=== PATIENT | female | born 1955 | race Caucasian/White ===

== ENCOUNTER → 2017-10-08 11:09 | Outpatient (CLI) | payer BC, SELFPAY ==
--- NOTE | 2017-10-08 11:46 | XR_ITS ---
EXAM: XR lumbar spine min 4V HISTORY: ITS.REASON: LOW BACK PAIN ORDERING PHYSICIAN: Margo Zuluaga PATIENT AGE: 62 years COMPARISON: None FINDINGS: There is mild degenerative disc disease at L5-S1. Mild facet hypertrophic changes are present from L3 to S1. The SI joints have an unremarkable appearance. There is minimal levocurvature of the lumbar spine. No acute fracture or dislocation. No lytic or blastic change. IMPRESSION: Degenerative disc disease L5-S1 with mild facet arthritic changes L3-S1
== END ==
PROVIDERS: PCP Nurse Practitioner Family; Visit Provider Nurse Practitioner Family
DX: M54.42 Lumbago with sciatica, left side (principal)
CPT/HCPCS: 72110

== ENCOUNTER → 2020-02-02 16:14 | Outpatient (POV) | payer BC, SELFPAY | PROVIDERS: Visit Provider Dermatology | DX: Z00.00 Encounter for general adult medical examination without abnormal findings (principal) ==

== ENCOUNTER → 2020-02-16 14:06 | Outpatient (POV) | payer BC, SELFPAY | PROVIDERS: Visit Provider Dermatology | DX: Z00.00 Encounter for general adult medical examination without abnormal findings (principal) ==

== ENCOUNTER → 2023-01-21 14:08 | Outpatient (CLI) | payer MEDICARE, SELFPAY ==
--- NOTE | 2023-01-21 14:12 | MM_ITS ---
PROCEDURE INFORMATION: Exam: Bilateral Screening 3D Mammography Exam date and time: 01/21/2023 2:06 PM Age: 67 years old Clinical indication: Screening examination TECHNIQUE: Imaging protocol: Bilateral Screening tomosynthesis and 2D mammography including computer-aided detection (CAD) when performed. COMPARISON: 1. DMSB DIGITAL MAMM-SCREEN BILATERAL 02/12/2011 9:45 AM 2. DIGMAMMDX MAMMOGRAM DX-OUTCOME ANALYST N/C 01/10/2009 10:05 AM FINDINGS: MAMMOGRAPHY: Breast composition: There are scattered areas of fibroglandular density. Mass: None. Architectural distortion: None. Calcifications: No suspicious calcifications. Asymmetric density: None. Skin thickening: None. Axillary adenopathy: None. IMPRESSION: No mammographic evidence of malignancy. Annual screening is recommended unless otherwise clinically indicated. ASSESSMENT: BI-RADS Category 1: Negative
== END ==
PROVIDERS: PCP Nurse Practitioner Family; Visit Provider Nurse Practitioner Family
DX: Z12.31 Encounter for screening mammogram for malignant neoplasm of breast (principal)
CPT/HCPCS: 77063; 77067

== ENCOUNTER 2023-03-27 09:30 | Day surgery (SDC) | payer MEDICARE, SELFPAY ==
[2023-03-27] VITALS (7 sets, daily range): BP systolic 107–138; BP diastolic 51–87; PULSE 63–75; RESP 16–21; TEMP 36.8; O2SAT 94–100; BMI 31.9
[2023-03-27] MEDS: LACTATED RINGERS 1000ML 1,000 ML 100 ML IV (10:10)
--- NOTE | 2023-03-27 10:43 | P.PNANES_ITS ---
[facility] Disclaimer: The information contained in this section may have been updated after the patient was seen, as this information can be updated by other users. Medical History (Updated 03/27/23 @ 10:15 by Mariposa Melgoza RN) History of tremor Surgical History (Updated 03/27/23 @ 10:17 by Mariposa Melgoza RN) History of colonoscopy Family History (Updated 03/27/23 @ 10:17 by Mariposa Melgoza RN) Other Colon cancer Family history of cancer Social History (Updated 03/27/23 @ 10:17 by Mariposa Melgoza RN) Smoking Status: Never smoker alcohol intake: never substance use type: denies use current occupational status: employed Travel in the last 8 weeks: None caffeine: Yes [facility] Anesthesia Checklist Patient Identification Patient Identification: Arm Band Structural Data Admitted From: Home Planned Operative Procedure/s: colonoscopy Consent for Planned Operative Procedure(s) Verified: Yes Verified Documents: Surgical Consent and History and Physical NPO Status Verified Time NPO: 00:00 Additional verifications Anesthesia Reactions: No Hx Blood Transfusions: No Blood Transfusion Reaction: No Airway Assessment Mallampati Score:: Class II C-Spine Mobility Assessed: Yes TMJ Mobility Assessed: Yes Dentition: Good Dentition Neurological Assessment Level of Consciousness: Awake and Alert Anesthesia Plan Anesthesia Risk discussed: Yes Anesthesia Plan: Verified ASA Class: II Anesthesia Type: MAC
--- NOTE | 2023-03-27 11:35 | P.PCN_ITS ---
Procedure: Date: 03/27/23 Patient Date of :: 1955 Procedure Performed:: Colonoscopy Indications:: The patient is a 67 year old who presents for surveillance colonoscopy for a history of colon polyps in the past. There is a family history of colon cancer in a first-degree relative with her mother. Performing Provider:: Dennis Ramirez MD Referring Provider:: Funmi Edward APRN Sedation:: See RN records Procedure:: After placing the patient in the left lateral decubitus position, the colonoscopy was gently inserted into the rectum and under direct visualization advanced to the cecum which was identified by transillumination in the right lower quadrant, identification of the ileocecal valve, appendiceal orifice, and cecal strap. Color, texture, mucosa, and anatomy of the colon were carefully e xamined with the scope. Findings:: Anal canal: normal Rectum: normal Sigmoid colon: normal without polyps or inflammatory changes Descending colon: normal without polyps or inflammatory changes Splenic flexure: normal Transverse colon: normal without polyps or inflammatory changes Hepatic flexure: normal Ascending colon: normal without polyps or inflammatory changes Cecum: normal Terminal ileum: not visualized Impression: Normal appearing colon Recommendations:: Repeat colonoscopy in 5 years Complications:: None Estimated blood obtained (mL): 0 Colonoscopy Component Colonoscopy Component Was a colonoscopy performed during today's procedure?: Yes Recommended follow up colonoscopy of at least 10 years?: Yes
== END 2023-03-27 12:28 | disposition home or self-care (01) ==
PROVIDERS: PCP Nurse Practitioner Family; Visit Provider Internal Medicine
PROC: (CPT G0105; principal; 2023-03-27 11:00)
DX: Z12.11 Encounter for screening for malignant neoplasm of colon (principal); Z86.010 Personal history of colon polyps; Z80.0 Family history of malignant neoplasm of digestive organs
CPT/HCPCS: G0105

== ENCOUNTER 2024-01-17 09:58 | Outpatient (CLI) | payer MEDICARE, SELFPAY ==
--- NOTE | 2024-01-17 10:03 | MM_ITS ---
PROCEDURE INFORMATION: Exam: MG Bilateral Screening 3D Mammography Exam date and time: 01/17/2024 9:52 AM Age: 68 years old Clinical indication: Screening examination, red/purple rash on the right breast, marked with a skin marker. TECHNIQUE: Imaging protocol: Bilateral Screening tomosynthesis and 2D mammography including computer-aided detection (CAD) when performed. COMPARISON: 1. MG MM DIG SCREENING MAMM BI W/CAD 01/21/2023 2:06 PM 2. MG DMSB DIGITAL MAMM-SCREEN BILATERAL 02/12/2011 9:45 AM FINDINGS: MAMMOGRAPHY: Breast composition: There are scattered areas of fibroglandular density. Mass: None. Architectural distortion: None. Calcifications: No suspicious calcifications. Asymmetric density: None. Skin thickening: None. No abnormality of the skin in the region of the skin marker placed in the right lower inner quadrant Axillary adenopathy: None. IMPRESSION: 1. A right breast ultrasound is recommended for further evaluation of skin rash in the right breast. 2. No mammographic abnormality is seen in either breast. ASSESSMENT: BI-RADS Category 0: Incomplete- Need Additional Imaging Evaluation.
== END 2024-01-17 23:59 | disposition home or self-care (01) ==
LOC: RAD 09:59
PROVIDERS: PCP Family Medicine; Visit Provider Nurse Practitioner
DX: Z12.31 Encounter for screening mammogram for malignant neoplasm of breast (principal)
CPT/HCPCS: 77063; 77067

== ENCOUNTER 2024-01-27 13:47 | Outpatient (CLI) | payer MEDICARE, SELFPAY ==
--- NOTE | 2024-01-27 13:52 | US_ITS ---
PROCEDURE INFORMATION: Exam: US Right Breast, Complete Exam date and time: 01/27/2024 2:23 PM Age: 68 years old Clinical indication: Rash in the right breast. TECHNIQUE: Imaging protocol: Complete ultrasound of all four quadrants of the right breast and the retroareolar regions, including ultrasound of the axilla when performed. COMPARISON: MG MM DIG SCREENING MAMM BI W/CAD 01/17/2024 9:52 AM FINDINGS: ULTRASOUND: Breast ultrasound findings: Ultrasound of the right breast in the upper inner quadrant is performed and demonstrates no suspicious skin thickening, underlying distortion, or shadowing, to correlate with the patient's area of skin discoloration/rash. Complete scanning of the right breast is performed. Note is made of minimally complicated cysts in the right breast 1 o'clock axis, 6 cm from the nipple measuring 0.4 x 0.4 x 0.5 cm and in the 9 o'clock axis, 10 cm from the nipple measuring 0.3 x 0.3 x 0.2 cm. There is no axillary adenopathy. IMPRESSION: 1. Area of skin discoloration/rash in the right breast upper inner quadrant demonstrates no underlying suspicious finding. 2. Incidentally detected complicated cysts in the right breast 1 o'clock axis and 9 o'clock axis, as above, are probably benign. Six-month follow-up right breast ultrasound is recommended. ASSESSMENT: BI-RADS Category 3: Probably benign.
== END 2024-01-27 23:59 | disposition home or self-care (01) ==
LOC: RAD 13:47
PROVIDERS: PCP Nurse Practitioner; Visit Provider Nurse Practitioner
DX: N64.4 Mastodynia (principal); R21 Rash and other nonspecific skin eruption
CPT/HCPCS: 76641

== ENCOUNTER 2024-11-28 10:20 | Emergency (ER) | payer MEDICARE, SELFPAY ==
[2024-11-28] VITALS (8 sets, daily range): BP systolic 127–179; BP diastolic 73–95; PULSE 72–90; RESP 16–17; TEMP 36.7; O2SAT 93–98; BMI 32.6
--- OUTSIDE RECORDS SUMMARY | 2024-11-28 10:31 | XMS_ITS ---
Author Organization Unknown Problems Date Problem Result OnSetDate Icd10 SnomedCode Severity Cu stom 01/16/2024 00:00:00 Hypertension I10 01/16/2024 00:00:00 Major depressive disorder, recurrent episode, moderate F33.1 10/12/2024 00:00:00 Neuropathy G62.9 [id number] 10/12/2024 00:00:00 Vitamin D deficiency E55.9 [id number] 10/12/2024 00:00:00 Essential hypertension I10 [id number] 10/12/2024 00:00:00 High cholesterol E78.00 [id number]
--- NOTE | 2024-11-28 10:48 | XR_ITS ---
PROCEDURE INFORMATION: Exam: XR Left Knee Exam date and time: 11/28/2024 11:42 AM Age: 69 years old Clinical indication: Pain; Knee; Left; Additional info: Left knee pain TECHNIQUE: Imaging protocol: Radiologic exam of the left knee. Views: 3 views. COMPARISON: No relevant prior studies available. FINDINGS: Bones/joints: No acute fracture or dislocation. Mild medial tibiofemoral compartment narrowing. Soft tissues: Normal. IMPRESSION: No acute findings.
[2024-11-28] MEDS: OXYCODONE 5MG IMMEDIATE RELEASE TABLET 5 MG PO (11:03)
[2024-11-28] MEDS: METHOCARBAMOL 500MG TABLET 1500 MG PO (11:03)
[2024-11-28] MEDS: ONDANSETRON 4MG ODT 4 MG SL (11:03)
--- NOTE | 2024-11-28 12:55 | HMH.EDGENADL ---
Discharge Plan Disposition Patient Disposition: Home, Self-Care Condition: Good Prescriptions Prescriptions: New etodolac 500 mg tablet 500 mg PO BID 7 Days Qty: 14 0RF cyclobenzaprine 5 mg tablet 5 mg PO BID PRN (Reason: muscle spasm) 7 Days Qty: 14 0RF No Action topiramate 50 mg tablet 50 mg PO HS Qty: 90 3RF Rx Instructions: See medication adjustment schedule. primidone 250 mg Tablet 250 mg PO DAILY Referrals Follow up/Referrals: Terri Lai APRN [Primary Care Provider, Medical] - See instructions Activity Restrictions/Add. Instructions Additional Instructions/Restrictions: Please take cyclobenzaprine and etodolac as prescribed for pain. If it makes you feel more comfortable you may wear a brace as needed. Weight-bear as tolerated. Please practice bending the knee daily so that your knee does not lock up on you. I want you to call Dr. Tristan's clinic on Saturday when they open to schedule an appointment for evaluation with orthopedics Clinical Impressions Clinical Impression: Injury of knee Qualifiers: Encounter type: initial encounter Laterality: left Qualified Code(s): S89.92XA - Unspecified injury of left lower leg, initial encounter Print Language Print Language: Upper Sorbian Discharge ED Provider: Francisco Lundy Adult [facility] General Chief complaint: PAIN Stated complaint: left knee popped, can't put weight on it Time Seen by Provider: 11/28/24 10:24 Mode of Arrival: Wheelchair Source of Information: Patient Description of Symptoms (Recalled from ER Triage Doc. by RN): pt presents to ED with c/o left knee pain. pt reports that around 11pm last night she was getting out of her lazy boy and she felt her knee pop and heard a pop. pt reports that pain is worse when standing on her leg. pt reports no pain when knee is resting. PMS +. History of Present Illness HPI narrative: This is a 69-year-old female patient, with no significant past medical history or daily medications, who is presented to the emergency department today for evaluation of left knee pain. Patient states last night around 11 PM she was standing up off the couch and she felt a pop in her knee followed by severe pain. She states that she took some NSAIDs prior to going to bed last night and this morning around 4 AM she woke from sleep with significant knee pain so she took some Tylenol and went back to bed. Upon actually waking up this morning her knee pain had persisted and she was having some stiffness in the knee and pain with range of motion so she decided to present here for further evaluation. She has not noticed any swelling of the knee. No ecchymosis. Only additional symptoms are difficulty with flexion secondary to pain Related Data Home Medications ?Medication ?Instructions ?Recorded ?Confirmed primidone 250 mg tablet 250 mg PO DAILY 03/27/23 11/11/24 Previous Rx's ?Medication ?Instructions ?Recorded topiramate 50 mg tablet 50 mg PO HS #90 tabs 11/11/24 cyclobenzaprine 5 mg tablet 5 mg PO BID PRN muscle spasm 7 11/28/24 days #14 tabs etodolac 500 mg tablet 500 mg PO BID 7 days #14 tabs 11/28/24 Allergies Allergy/AdvReac Type Severity Reaction Status Date / Time No Known Allergies Allergy Verified 11/11/24 09:26 [facility] Disclaimer: The information contained in this section may have been updated after the patient was seen, as this information can be updated by other users. Medical History History of tremor Surgical History History of colonoscopy Family History Other Colon cancer Family history of cancer Social History Smoking Status: Never smoker alcohol intake: never substance use type: denies use current occupational status: employed Travel in the last 8 weeks?: None caffeine: Yes Have you lived/traveled outside [place] in past 30 days?: No Contact w/someone who lives/traveled outside US past 30 days?: No Exposure to someone with infectious disease in past 14 days?: No Do you have a fever (greater than 100.4 F or 38 C)?: No Have you tested positive for COVID-19?: No Exposed to someone with COVID-19 in past 14 days?: No Do you have a sore throat?: No Do you have a cough?: No Do you have any weakness?: No Do you have any diarrhea?: No Are you experiencing any unusual bleeding?: No Do you have any muscle aches/pain?: No Do you have any abdominal pain?: No Are you experiencing loss of taste or smell?: No Other Medical History Have you received the Pneumonia Vaccine: No ROS Obtained: Yes Systems reviewed as appropriate & no additional complaints except as documented Physical Exam General General appearance: other (See MDM) Respiratory Respiratory exam: Present other (See MDM) Cardiovascular Cardiovascular exam: Present other (See MDM) Neurological Exam Neurological exam: Present other (See MDM) Medical Decision Making Medical Records Medical records reviewed: Yes I reviewed the patient's medical records. Screening: Per USPSTF and CDC recommendations, given the prevalence of disease in our region, it is our hospital?s policy to screen for HIV and viral Hepatitis for all patients aged 18 and over and those with ongoing risk factors. [place] Inquiry Pt receiving controlled substance: No [place] was queried for this patient: No Vital Signs: 11/28/24 10:27 11/28/24 10:29 11/28/24 10:30 Temperature 98.1 F Temperature Source Oral Pulse Rate 90 86 Pulse Rate [Left Radial] 89 Respiratory Rate 16 Blood Pressure 179/95 H 161/89 H Blood Pressure [Right Arm] 179/95 H Blood Pressure Mean [Right Arm] 123 Blood Pressure Source Blood Pressure Position 02 Sat by Pulse Oximetry 94 L 97 98 Oxygen Delivery Method Room Air 11/28/24 10:30 11/28/24 11:00 11/28/24 11:00 Temperature Temperature Source Pulse Rate 86 82 78 Pulse Rate [Left Radial] Respiratory Rate 16 17 Blood Pressure 161/89 H 159/85 H 159/85 H Blood Pressure [Right Arm] Blood Pressure Mean [Right Arm] Blood Pressure Source Automatic Cuff Automatic Cuff Blood Pressure Position Supine Supine 02 Sat by Pulse Oximetry 97 97 98 Oxygen Delivery Method Room Air Room Air 11/28/24 11:30 11/28/24 11:30 11/28/24 12:01 Temperature Temperature Source Pulse Rate 78 75 79 Pulse Rate [Left Radial] Respiratory Rate 16 Blood Pressure 142/74 H 142/74 H 137/73 Blood Pressure [Right Arm] Blood Pressure Mean [Right Arm] Blood Pressure Source Automatic Cuff Blood Pressure Position Supine 02 Sat by Pulse Oximetry 94 L 93 L 95 Oxygen Delivery Method Room Air 11/28/24 12:30 11/28/24 13:02 Temperature 98.0 F Temperature Source Pulse Rate 72 75 Pulse Rate [Left Radial] Respiratory Rate 16 Blood Pressure 139/77 127/78 Blood Pressure [Right Arm] Blood Pressure Mean [Right Arm] Blood Pressure Source Blood Pressure Position 02 Sat by Pulse Oximetry 97 Oxygen Delivery Method Room Air Orders (Tests/Meds): ED MEDICATIONS Discontinued Medications Generic Name Dose Route Start Last Admin Trade Name Yuan PRN Reason Stop Dose Admin Methocarbamol 1,500 mg 11/28/24 10:51 11/28/24 11:03 Methocarbamol 500mg Tablet PO 11/28/24 10:52 1,500 mg ONCE ONE Administration Ondansetron HCl 4 mg 11/28/24 10:50 11/28/24 11:03 Ondansetron 4mg Odt SL 11/28/24 10:51 4 mg ONCE ONE Administration Oxycodone HCl 5 mg 11/28/24 10:50 11/28/24 11:03 Oxycodone 5mg Immediate Release Tablet PO 11/28/24 10:51 5 mg ONCE ONE Administration ORDERS Category Date Time Status Knee XR left 3 views [XR knee LT 3V] Stat Exams 11/28/24 10:48 Completed Medical Decision Narrative: In summary, this is a 69-year-old female patient who is presented to the emergency department today for evaluation of left knee pain after feeling a popping sensation in the knee while standing up last night. She is taken Tylenol and ibuprofen at home without relief of symptoms. She is having difficulty with flexion of the knee secondary to pain and a sensation of the knee feeling stuck . The patient does not have any medical comorbidities that would complicate her medical management or care. On initial evaluation of the patient they were resting comfortably in no acute distress and nontoxic in appearance. They are hemodynamically stable, saturating well room air, and are neurologically intact. On physical examination of the patient she does have significant tenderness to the knee on the posterior aspect. The posterior aspect of the knee feels symmetric bilaterally and there is no evidence of Eid's cyst on palpation. The medial and lateral joint lines are nontender to palpation. She is able to flex the knee passively but does have some pain when doing this. She has no appreciable effusion present. No tenderness of the proximal fibular head. Patellar tendon does appear to be intact by palpation as well as ability to activate the quads. Differential diagnosis includes tibial plateau fracture, Segond fracture, among others. Patient could also very likely have a soft tissue injury such as a meniscus tear or ligamentous tear. As mentioned above there is a low suspicion for quadriceps tendon rupture. In the absence of an effusion I do not feel that this is likely to be inflammatory arthritis or septic arthritis especially without any overlying erythematous changes Initial workup included a an x-ray of the left knee. Hematologic labs were not obtained as these were not felt to be necessary to aid in the diagnosis of the patient. Initial interventions included 5 mg of oxycodone with 4 mg of Zofran and 1500 mg of Robaxin. X-rays of the left knee were personally turbid by me and demonstrate no acute fracture or dislocation. Official radiology read is in agreement and states that there is no acute antibody. On repeat assessment the patient her pain has improved and she is ambulatory without difficulty. She still experiencing some pain in the knee so we have discussed discharge home with Robaxin and etodolac for pain control. I am instructed the patient that she can use her brace as needed for stability at home. I have asked that she range the knee daily and weight-bear as tolerated. I have also given her the clinic phone number for Dr. Tristan so that she can follow-up with orthopedics for this injury. at this time all questions have been answered and all parties are agreeable with the decision to discharge home. Critical Care Critical Care Time Critical Care Time: No
== END 2024-11-28 13:02 | disposition home or self-care (01) ==
PROVIDERS: Emergency Provider Student in an Organized Health Care Education/Training Program; PCP Nurse Practitioner
DX: S89.90XA Unspecified injury of unspecified lower leg, initial encounter (principal)
CPT/HCPCS: 73562; 99283; Q0162

== ENCOUNTER 2025-02-19 12:43 | Outpatient (CLI) | payer MEDICARE, SELFPAY ==
--- OUTSIDE RECORDS SUMMARY | 2025-02-19 12:47 | XMS_ITS | Data Portability ---
Author Organization [place] - [place] Aamya CIM[facility] CLOSED Address [address] [facility] [address] [place] [address] Care Team Providers Care Beef Grinder Name Role Phone DEVORAH GAN Referring Provider Assessment Encounter Date Assessment Date Assessment LastModified by Organization Details LastModified Time 04/19/2023 04/19/2023 67 yo here today for recheck on essential tremor She has noted improvement in tremor with the primidone but also has noticed increased MOTTA during the night since being on full dose. We are going to cut the dose back to 125 mg nightly and see how she does. she previously noted tremor improvement at 100mg nightly. We will see if we can get less side effects with the lower dose. RTC 6 months for recheck, sooner if needed. Not available 04/19/2023 12:58:16 10/18/2023 10/18/2023 68 yo here today for tremor recheck She is doing well with tremor control on primidone 125mg daily. This is not causing her any side effects and she is pleased with this plan. RTC 1y, sooner if problems. Not available 10/18/2023 12:29:15 Plan of Treatment Reminders Order Date Submit Date Provider Last Modified By Organization Details Last Modified Time Details Appointments None recorded. Lab None recorded. Referral None recorded. Procedures None recorded. Surgeries None recorded. Imaging None recorded. Medication Orders primidone 125 mg tablet 2023 024 [facility], [address], [address], 12:44:01 primidone 50 mg tablet 2022 024 [facility], [address], [address], 4 12:44:00 primidone 250 mg tablet [address] [facility], [address], [address], 4 12:54:08 Patient TargetsNo targets recorded. Patient InstructionsNo instructions recorded. Reason for Referral None Reported. Procedures Surgical History Date Name Laterality Status Provider Name and Address Organization Details Recorded Time Colonoscopy completed Gladis Keiko [facility] 02/15/2023 13:00:54 Imaging Results None recorded. Procedure Notes None recorded. Medical Equipment None Reported. Allergies No known drug allergies Medications Name Sig Start Date Stop Date Status Note LastModified by Organization Details LastModified Time primidone 50 mg tablet 1 tab daily for 7d, then 1 tab BID for 7d, then 1 tab in AM and 2 tab in PM for 7d, then 2 tab BID for 7 d, then continue with 250mg tablets daily 04/19 completed Not Available Not Available Not Available primidone 250 mg tablet TAKE 1/2 TABLET BY MOUTH EVERY DAY AT BEDTIME. 2024 active Not Available Not Available Not Dorothy alexandre Centrum Men 8 mg iron-200 mcg-600 mcg tablet Take by oral route. active Not Available Not Available No t Available Metamucil 0.4 gram capsule Take by oral route. active Not Available Not Available No t Available primidone 125 mg tablet Take 1 tablet every day by oral route at bedtime. 2023 active Not Available Not Available Not Dorotyh alexandre Vitals Date Recorded Body height Body mass index (BMI) Body weight Provider Name and Address Organization Details Last Updated DateTime 04/19/2023 172.72 cm 32.5 kg/m2 77030.77 neel FAITH PA-C [address] [place], [address] 04/19/2023 12:35:23 Date Recorded Body mass index (BMI) Body weight Provider Name and Address Organization Details Last Updated DateTime 10/18/2023 32.1 kg/m2 93281.99 neel FAITH PA-C [address] [place], [address] 10/18/2023 12:21:21 Date Recorded Body height Heart rate Oxygen saturation Systolic And Diastolic Provider Name and Address Organization Details Last Updated DateTime 10/18/2023 172.72 cm 77 /min 96 % 130/80 mm[Hg] Farzana Chandler [facility] 10/18/2023 11:58:00 Date Recorded Body height Body mass index (BMI) Body weight Heart rate Oxygen saturation Systolic And Diastolic Provider Name and Address Organization Details Last Updated DateTime 172.72 cm 31.8 kg/m2 40441.8 1 g 78 /min 95 % 132/88 mm[Hg] Gladis Aden [facility] 13:03:43 Social History Question Answer Notes LastModified by Organizat ion Details LastModified Time Tobacco Smoking Status Never [facility]oker [facility]15[facility]2023 13:00:23 What Was The Date Of Your Most Recent Tobacco Screening? 02/15/2023 Information not available 02/15/2023 Sex: Unknown Functional Status Question Answer Note LastModified by Organizat ion Details LastModified Time Are you currently employed? 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 Family History Relationship Description Onset Age of this Age Resolved Age Notes LastModified by Organization Details LastModified Time Father Family history of malignant neoplasm lung Not available 2022 12:59:56 Mother Family history of malignant neoplasm colon Not available 2022 12:59:56 Medical History No medical history recorded. Gynecological HistoryNo gynecological history recorded. Obstetrics History GPAL:G 0 P 0 0 0 0 Past Encounters Encounter ID Performer Location Encounter Start Date Encounter Closed Date Diagnosis/Indication Diagnosis SNOMED-CT Code Diagnosis ICD10 Code Diagnosis IMO Codes Diagnosis Note [id number] LENY DUEÑAS MD NEUROLOGY [facility] [address] [place] [address] 02/15/2023 12:36:55 02/16/2023 04:13:46 Essential tremor 707016392 G25.0 she already tried a beta precious in the pasttrial of primidone titration - she will call before the end of the year with an update if there are any side effectsdis cussed more invasive approaches - focused USG targetin the ventral intermedia te (Vim) nucleus of the thalamus or DBS targeting the globus pallidus interna or subthalami c nucleus (patient wants to hold off on those)disc ussed weighted utensilsf/ u in 2m [id number] PINKY FAITH PA-C NEUROLOGY [facility] [address] [place] [address] 04/19/2023 12:14:29 04/20/2023 04:28:57 Essential tremor 838648595 G25.0 [id number] PINKY FAITH PA-C NEUROLOGY [facility] [address] [place] [address] 10/18/2023 11:21:51 10/19/2023 04:06:13 Essential tremor 252208755 G25.0 Health Concerns Section Related Observation LastModified by Organization Detai ls LastModified Time None Recorded Concern Status LastModified by Organization Details LastModified Time None Recorded Advance Directives Directive None Recorded Payers Insurance Date Sequence Insurance Name Policy Number Policy Sanchez Covered Member ID Sanchez Member ID Guarantor Name 10/20/2023 1 [employer] (MEDICARE REPLACEMENT/A DVANTAGE - PPO) Douglas Jackson Yobani [id number] Douglas Mackey Yobani Notes Date Note Type Note Provider Name and Address Organization Details Recorded Time 02/15/2023 text/html ROS as noted in the HPI 67 yo F who is otherwise healthy, but her essential tremor is returning so she wishes to examine her options. She had seen Dr. Desai in her 30s and was diagnosed with hand tremors and started tenormin (atenolol) medication, but she was young and didn't feel she needed this at that time. 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 She doesn't know if alcohol would make it better. She uses a large spoon to prevent spillage. Her writing is legible. She doesn't shuffle or fall down or have loss of smell. She never had any neck surgery. She denied REM sleep behavior disorder, headaches, or family history of essential tremor or parkinsons. LENY DUEÑAS MD [facility] [place], [address], [facility] 02/15/2023 13:44:56 04/19/2023 text/html ROS as noted in the HPI 67 yo here today for 2m recheck on essential tremorSeen by Dr. Dueñas on 02/15/23: she already tried a beta precious in the pasttrial of primidone titration - she will call before the end of the year with an update if there are any side effectsdiscussed more invasive approaches - focused USG targeting the ventral intermediate (Vim) nucleus of the thalamus or DBS targeting the globus pallidus interna or subthalamic nucleus (patient wants to hold off on those)discussed weighted utensilsCurrently on primidone 250mg daily Today she reports that her tremor has improved some with the medications.She is now on the 250mg primidoneShe reports that as she was working up she started to notice improvement at 100mg per day.She can't really tell a difference between 100mg daily and 250 mg daily.Does feel like she is maybe getting more headaches with this dose. They seem to happen in the night but not every night just more often than she used to notice MOTTA. She is taking the primidone at bedtime.She is wondering if she has to take this medicine the rest of her life.She took atenolol in her 20s for the tremor but had weight gain with that. PINKY FAITH PA-C [facility] [place], [address], [facility] 04/19/2023 12:58:49 10/18/2023 text/html ROS as noted in the HPI 68 yo here today for 6m tremor recheck: She has noted improvement in tremor with the primidone but also has noticed increased MOTTA during the night since being on full dose.We are going to cut the dose back to 125 mg nightly and see how she does. she previously noted tremor improvement at 100mg nightly. We will see if we can get less side effects with the lower dose. She is using the 125mg dose nightlyThe MOTTA has resolved at this doseShe is pleased with how things are going at this dose - depends on what she is doing if it is worse or not.L>R PINKY FAITH PA-C [address], [place], [address], [facility] 10/18/2023 12:29:35 OBGyn Episode No OBEpisode recorded.
--- NOTE | 2025-02-19 13:00 | MR_ITS ---
FINAL REPORT CLINICAL HISTORY: Knee pain medial sided left knee pain COMPARISON: None FINDINGS: Multi planar MR imaging was performed of the left knee. The anterior and posterior cruciate ligaments are intact. The quadriceps and patellar tendons are intact. There is a full-thickness tear of the posterior horn of the medial meniscus. The lateral meniscus is intact. The medial and lateral collateral ligaments appear intact. The medial and lateral retinacula appear intact. There is bone marrow edema in the medial tibial plateau, and a small osteochondral lesion in the medial femoral condyle. A small effusion is present. There is also a popliteal cyst measuring up to 6 cm in the craniocaudal dimension. No evidence of soft tissue inflammatory reaction. IMPRESSION: Full-thickness tear posterior horn of the medial meniscus. Bone marrow edema in the medial tibial plateau with a small osteochondral lesion in the medial femoral condyle. Reviewed, Interpreted and Dictated by Michel Hernandez MD Transcribed by Marti Hodgson Authenticated and . [facility]
== END 2025-02-19 23:59 | disposition home or self-care (01) ==
PROVIDERS: PCP Nurse Practitioner; Visit Provider Specialist
DX: S83.242A Other tear of medial meniscus, current injury, left knee, initial encounter (principal); M93.862 Other specified osteochondropathies, left lower leg
CPT/HCPCS: 73721